=== PATIENT | female | born 2000 | race Caucasian/White ===

== ENCOUNTER 2024-12-07 15:29 | Emergency (ER) | payer MEDICAID ==
[~2024-12-07] VITALS: Ht 167.6 cm; Wt 65.9 kg
[2024-12-07 15:42] VITALS: BP 113/64; PULSE 98; RESP 16; TEMP 98.2; O2SAT 98
[2024-12-07 17:04] LABS: PLATELET COUNT (AUTO) 214 K/uL (150-450); RED BLOOD CELL COUNT(AUTO) 3.60 MIL/uL (4.00-5.20); RED CELL DISTRIBUTION WIDTH 13.3 % (11.5-14.5); WHITE BLOOD COUNT (AUTO) 9.0 K/uL (4.5-11.0)
[2024-12-07 17:08] LABS: APPEARANCE,URINE CLEAR (CLEAR); GLUCOSE, URINE (UA) NEGATIVE (NEGATIVE); LEUKOCYTE ESTERASE ,URINE NEGATIVE (NEGATIVE); NITRATE,URINE NEGATIVE (NEGATIVE); OCCULT BLOOD,URINE NEGATIVE (NEGATIVE)
[2024-12-07 17:10] LABS: CALCIUM, TOTAL 8.3 mg/dL (8.8-10.5); CREATININE 0.46 mg/dL (0.60-1.30); GLOMERULAR FILTR. RATE CALC > 60 mL/min (>60); GLUCOSE,RANDOM 99 mg/dL (70-110); SODIUM SERUM 138 mmol/L (136-145); UREA NITROGEN, BLOOD 3 mg/dL (7-18)
[2024-12-07 17:17] LABS: SPECIFIC GRAVITIY, URINE > 1.030 (1.003-1.030)
== END 2024-12-07 17:32 | disposition home or self-care (01) ==
LOC: EMS 15:33
DX: O99.013 Anemia complicating pregnancy, third trimester (principal); O47.1 False labor at or after 37 completed weeks of gestation; Z3A.37 37 weeks gestation of pregnancy
CPT/HCPCS: 80048; 81003; 85025; 99283